=== PATIENT | male | born 1950 | race Native Hawaiian/Other Pacific Islander ===

== ENCOUNTER 2018-07-23 15:26 | Inpatient (IN) | payer OTHER ==
[~2018-07-23] VITALS: Ht 177.8 cm; Wt 49.7 kg
[2018-07-23 17:20] VITALS: BP 139/57; TEMP 96.9; Ht 177.8 cm; Wt 49.7 kg
[2018-07-23 19:51] LABS: PLATELET COUNT 275 K/uL (142-355)
[2018-07-23 20:00] VITALS: BP 112/60; TEMP 98.3
[2018-07-23 20:06] LABS: POTASSIUM 3.4 mmol/L (3.6-5.2)
[2018-07-24] VITALS: BP 101/62; TEMP 100.5
[2018-07-24 04:00] VITALS: BP 120/64; TEMP 98.4
[2018-07-24 08:00] VITALS: BP 124/62; TEMP 97.7
[2018-07-24 12:00] VITALS: BP 122/56; TEMP 99
[2018-07-24 16:00] VITALS: BP 152/84; TEMP 97.6
[2018-07-24 20:00] VITALS: BP 123/68; TEMP 97.4
[2018-07-24 23:37] LABS: PLATELET COUNT 234 K/uL (142-355)
[2018-07-25] VITALS: BP 126/66; TEMP 97.6
[2018-07-25 04:21] VITALS: BP 151/75; TEMP 97.7
[2018-07-25 08:00] VITALS: BP 126/67; TEMP 97.9
[2018-07-25 12:00] VITALS: BP 131/70; TEMP 98.9
[2018-07-25 16:00] VITALS: BP 130/70; TEMP 98.6
[2018-07-25 20:00] VITALS: BP 136/75; TEMP 99.4
[2018-07-26] VITALS: BP 126/66; TEMP 98.3
[2018-07-26 04:00] VITALS: BP 123/63; TEMP 98.8
[2018-07-26 08:00] VITALS: BP 126/67; TEMP 98
[2018-07-26 12:00] VITALS: BP 110/56; TEMP 98.2
[2018-07-26 16:00] VITALS: BP 111/60; TEMP 99.2
== END 2018-07-26 16:30 | disposition home or self-care (01) | DRG 444 ==
LOC: MED/SURG 15:26
PROVIDERS: ADMIT Family Medicine
DX: K82.9 Disease of gallbladder, unspecified (principal); J15.211 Pneumonia due to Methicillin susceptible Staphylococcus aureus; K52.89 Other specified noninfective gastroenteritis and colitis; E86.0 Dehydration; R05 Cough; J44.9 Chronic obstructive pulmonary disease, unspecified; G89.4 Chronic pain syndrome; R07.89 Other chest pain; R63.0 Anorexia
CPT/HCPCS: 80053; 81000; 82550; 83735; 84134; 84153; 84484; 85007; 85027; 87040; 87070; 87077; 87185; 87186; 87205; 93005; 94640; 94664; 94668; 94760; J0696; J1650; J1885; J1956; J3490

== ENCOUNTER 2018-08-01 12:47 | Outpatient (CLI) | payer OTHER | END 2018-08-01 21:52 | disposition home or self-care (01) | LOC: NM 12:47 | DX: R10.84 Generalized abdominal pain (principal) | CPT/HCPCS: A9537 ==

== ENCOUNTER 2020-04-20 11:21 | Emergency (ER) | payer OTHER ==
[~2020-04-20] VITALS: Ht 175.3 cm; Wt 40.8 kg
[2020-04-20 12:29] LABS: PLATELET COUNT 288 K/uL (142-355)
[2020-04-20 12:31] LABS: POTASSIUM 5.3 mmol/L (3.6-5.2)
[2020-04-20 14:00] VITALS: BP 117/74; TEMP 98.5
== END 2020-04-20 14:20 | disposition home or self-care (01) ==
LOC: ED 11:21
PROVIDERS: Family Medicine
DX: E87.1 Hypo-osmolality and hyponatremia (principal); R64 Cachexia; R63.0 Anorexia; C34.90 Malignant neoplasm of unspecified part of unspecified bronchus or lung; E86.0 Dehydration; F17.210 Nicotine dependence, cigarettes, uncomplicated
CPT/HCPCS: 80053; 85027; 96360; 96375; 99284; J2405; J3490